=== PATIENT | male | born 1985 | race African-American/Black ===

== ENCOUNTER 2016-12-13 19:21 | Emergency (ER) | payer SELFPAY ==
[2016-12-13 22:19] LABS: BASOPHIL % 0.5 % (0-2); PLATELET COUNT 367 x10^3mcL (130-400); RED CELL DISTRIBUTION WIDTH 13.5 % (11.5-14.5)
[2016-12-13 22:35] LABS: CALCIUM 8.9 mg/dL (8.5-10.1); CARBON DIOXIDE 26.7 mmol/L (21-32); CHLORIDE SERUM 102 mmol/L (98-107); GFR1 > 60 mL/min; GLUCOSE SERUM 87 mg/dL (74-106); POTASSIUM SERUM 3.5 mmol/L (3.5-5.1); SODIUM SERUM 138 mmol/L (136-145)
[2016-12-13 22:38] LABS: ALBUMIN 3.8 g/dL (3.4-5.0); ALKALINE PHOSPHATASE 116 U/L (46-116); ALT/SGPT 99 U/L (16-63); AST/SGOT 89 U/L (15-37); BILIRUBIN TOTAL 1.1 mg/dL (0.20-1.00); LIPASE 95 IU/L (73-393)
[2016-12-13 22:41] LABS: CHOLESTEROL 120 mg/dL (<200); CHOLESTEROL/HDL RATIO 1.6; HDL CHOLESTEROL 76 mg/dL (40-60); TRIGLYCERIDES 28 mg/dL (<150)
[2016-12-13 23:14] LABS: T3 TOTAL 0.98 ng/mL
[2016-12-13 23:20] LABS: FREE T4 1.27 ng/dL (0.76-1.46); FREE THYROXINE INDEX 3.2 ug/dL (1.4-4.5)
[2016-12-14 00:35] VITALS: BP 108/66
== END 2016-12-14 00:42 | disposition left against medical advice (07) ==
LOC: ED 19:21
PROVIDERS: Specialist
DX: F41.9 Anxiety disorder, unspecified (principal); R53.1 Weakness; R53.83 Other fatigue; F32.1 Major depressive disorder, single episode, moderate; F17.200 Nicotine dependence, unspecified, uncomplicated
CPT/HCPCS: 83880; 84439; G0480; J3411; J3475; J3490; J7030; Q0092

== ENCOUNTER 2016-12-14 01:20 | Emergency (ER) | payer SELFPAY ==
[2016-12-14 01:37] VITALS: BP 142/99
== END 2016-12-14 03:29 | disposition left against medical advice (07) ==
LOC: ED 01:20
DX: Z53.21 Procedure and treatment not carried out due to patient leaving prior to being seen by health care provider (principal)

== ENCOUNTER 2017-02-08 06:41 | Emergency (ER) | payer SELFPAY ==
[2017-02-08 07:02] VITALS: BP 161/120
== END 2017-02-08 07:59 | disposition home or self-care (01) ==
LOC: ED 06:41
DX: F41.9 Anxiety disorder, unspecified (principal); N45.1 Epididymitis; R03.0 Elevated blood-pressure reading, without diagnosis of hypertension
CPT/HCPCS: 87491; 87591; J0696

== ENCOUNTER 2017-09-12 22:36 | Emergency (ER) | payer OTHER ==
[~2017-09-12] VITALS: Ht 180.3 cm; Wt 95.8 kg
[2017-09-12 23:37] LABS: BASOPHIL % 0.4 % (0-2); PLATELET COUNT 300 x10^3mcL (130-400); RED CELL DISTRIBUTION WIDTH 12.6 % (11.5-14.5)
[2017-09-12 23:48] LABS: CALCIUM 9.3 mg/dL (8.5-10.1); CARBON DIOXIDE 28.8 mmol/L (21-32); CHLORIDE SERUM 102 mmol/L (98-107); CREATININE SERUM 1.2 mg/dL (0.7-1.3); GFR1 > 60 mL/min; GLUCOSE SERUM 108 mg/dL (74-106); POTASSIUM SERUM 3.2 mmol/L (3.5-5.1); SODIUM SERUM 137 mmol/L (136-145)
[2017-09-12 23:55] LABS: FREE T4 1.23 ng/dL (0.76-1.46); T4(THYROXINE) 8.6 ug/dL (4.7-13.3)
[2017-09-13 00:13] LABS: ALBUMIN 4.2 g/dL (3.4-5.0); ALKALINE PHOSPHATASE 113 U/L (46-116); ALT/SGPT 28 U/L (16-63); AST/SGOT 31 U/L (15-37); BILIRUBIN TOTAL 0.6 mg/dL (0.20-1.00); HDL CHOLESTEROL 57 mg/dL (40-60); LIPASE 85 IU/L (73-393); TOTAL PROTEIN, SERUM 7.7 g/dL (6.4-8.2); TRIGLYCERIDES 35 mg/dL (<150)
[2017-09-13 00:14] VITALS: BP 148/89
[2017-09-13 00:18] LABS: CHOLESTEROL 122 mg/dL (<200); CHOLESTEROL/HDL RATIO 2.1
[2017-09-13 00:48] LABS: T3 TOTAL 1.1 ng/mL
== END 2017-09-13 00:35 | disposition home or self-care (01) ==
LOC: ED 22:36
PROVIDERS: Specialist
DX: F41.9 Anxiety disorder, unspecified (principal); F15.10 Other stimulant abuse, uncomplicated
CPT/HCPCS: 36415; 83880; 84439; J2060; Q0092

== ENCOUNTER 2018-12-05 15:47 | Emergency (ER) | payer OTHER ==
[~2018-12-05] VITALS: Ht 188 cm; Wt 79.4 kg
[2018-12-05 16:34] VITALS: Ht 188 cm; Wt 79.4 kg
[2018-12-05 16:45] LABS: CALCIUM 9.1 mg/dL (8.5-10.1); CARBON DIOXIDE 18.8 mmol/L (21-32); CHLORIDE SERUM 103 mmol/L (98-107); CREATININE SERUM 1.2 mg/dL (0.7-1.3); GFR1 > 60 mL/min; GLUCOSE SERUM 98 mg/dL (74-106); POTASSIUM SERUM 3.9 mmol/L (3.5-5.1); SODIUM SERUM 138 mmol/L (136-145)
[2018-12-05 16:50] LABS: ALKALINE PHOSPHATASE 124 U/L (46-116); ALT/SGPT 26 U/L (16-63); AST/SGOT 28 U/L (15-37); BILIRUBIN TOTAL 1.12 mg/dL (0.20-1.00); TOTAL PROTEIN, SERUM 7.7 g/dL (6.4-8.2)
[2018-12-05 16:50] LABS: AMPHETAMINE QUAL UR NONE DETECTED (See below)
[2018-12-05 16:51] LABS: BASOPHIL % 0.8 % (0-2); PLATELET COUNT 352 x10^3mcL (130-400); RED CELL DISTRIBUTION WIDTH 13.7 % (11.5-14.5)
--- NOTE | 2018-12-06 08:45 | NUR ---
Contacted the following facilities regarding placement. [facility]: s/w Cristina, no beds available [facility]: s/w Lisseth, no beds available [facility]: s/w Nini, no beds available, packet faxed for waitlist [facility]: States they cannot accept pt. [facility]: s/w Marline, states no bed available [facility]: s/w Karir, no bed available [facility]: s/w Alba, no bed available, packet faxed for waitlist [facility]: s/w Yaneth, states possible bed, will review packet [facility] s/w Madison, no bed available, packet faxed for waitlist.
[2018-12-06 13:43] VITALS: BP 132/75
== END 2018-12-06 13:43 | disposition home or self-care (01) ==
LOC: ED 15:47
PROVIDERS: Emergency Medicine
DX: R45.851 Suicidal ideations (principal); F41.9 Anxiety disorder, unspecified
CPT/HCPCS: 36415; G0480; J7030

== ENCOUNTER 2019-02-16 11:29 | Emergency (ER) | payer OTHER ==
[~2019-02-16] VITALS: Ht 180.3 cm; Wt 81.6 kg
[2019-02-16 11:51] LABS: BASOPHIL % 0.3 % (0-2); PLATELET COUNT 309 x10^3mcL (130-400); RED CELL DISTRIBUTION WIDTH 13.4 % (11.5-14.5)
[2019-02-16 11:57] LABS: CALCIUM 9.1 mg/dL (8.5-10.1); CARBON DIOXIDE 23.8 mmol/L (21-32); CHLORIDE SERUM 103 mmol/L (98-107); CREATININE SERUM 1.6 mg/dL (0.7-1.3); GFR1 53 mL/min; GLUCOSE SERUM 98 mg/dL (74-106); POTASSIUM SERUM 3.5 mmol/L (3.5-5.1); SODIUM SERUM 142 mmol/L (136-145)
[2019-02-16 12:02] LABS: ALBUMIN 4.4 g/dL (3.4-5.0); ALKALINE PHOSPHATASE 103 U/L (46-116); ALT/SGPT 38 U/L (16-63); AST/SGOT 94 U/L (15-37); BILIRUBIN TOTAL 1.6 mg/dL (0.20-1.00); TOTAL PROTEIN, SERUM 7.7 g/dL (6.4-8.2)
[2019-02-16 14:35] LABS: microscopic required? NO
[2019-02-16 14:59] LABS: UA SPECIFIC GRAVITY 1.015 (1.005-1.035); urine erythrocyte NEGATIVE (NEGATIVE)
[2019-02-16 21:42] VITALS: BP 142/80
== END 2019-02-16 21:42 | disposition home or self-care (01) ==
LOC: ED 11:29
PROVIDERS: Specialist
DX: S51.011A Laceration without foreign body of right elbow, initial encounter (principal); S51.811A Laceration without foreign body of right forearm, initial encounter; F41.9 Anxiety disorder, unspecified; F15.10 Other stimulant abuse, uncomplicated; W22.8XXA Striking against or struck by other objects, initial encounter; Y93.89 Activity, other specified; Y92.89 Other specified places as the place of occurrence of the external cause; Y99.8 Other external cause status
CPT/HCPCS: G0480; J2001; J2060; J3486; J7030

== ENCOUNTER 2019-02-18 06:47 | Emergency (ER) | payer OTHER ==
[~2019-02-18] VITALS: Ht 180.3 cm; Wt 81.6 kg
[2019-02-18 06:53] VITALS: Ht 180.3 cm; Wt 81.6 kg
== END 2019-02-18 08:05 | disposition home or self-care (01) ==
LOC: ED 06:47
DX: F41.9 Anxiety disorder, unspecified (principal); G47.00 Insomnia, unspecified; F15.10 Other stimulant abuse, uncomplicated

== ENCOUNTER 2019-02-18 14:39 | Emergency (ER) | payer OTHER ==
[~2019-02-18] VITALS: Ht 180.3 cm; Wt 81.6 kg
[2019-02-18 14:47] VITALS: Ht 180.3 cm; Wt 81.6 kg
[2019-02-18 15:42] LABS: CALCIUM 9.3 mg/dL (8.5-10.1); CARBON DIOXIDE 26.2 mmol/L (21-32); CHLORIDE SERUM 104 mmol/L (98-107); CREATININE SERUM 1.5 mg/dL (0.7-1.3); GFR1 57 mL/min; GLUCOSE SERUM 101 mg/dL (74-106); POTASSIUM SERUM 3.8 mmol/L (3.5-5.1); SODIUM SERUM 140 mmol/L (136-145)
[2019-02-18 15:46] LABS: ALBUMIN 4.3 g/dL (3.4-5.0); ALKALINE PHOSPHATASE 96 U/L (46-116); ALT/SGPT 54 U/L (16-63); AST/SGOT 148 U/L (15-37); BILIRUBIN TOTAL 1.8 mg/dL (0.20-1.00); LIPASE 147 IU/L (73-393); TOTAL PROTEIN, SERUM 7.7 g/dL (6.4-8.2)
[2019-02-18 15:56] LABS: BASOPHIL % 0.6 % (0-2); PLATELET COUNT 284 x10^3mcL (130-400); RED CELL DISTRIBUTION WIDTH 13.2 % (11.5-14.5)
[2019-02-18 16:45] LABS: UA SPECIFIC GRAVITY 1.015 (1.005-1.035); microscopic required? YES; urine erythrocyte TRACE (NEGATIVE)
[2019-02-18 17:13] LABS: AMPHETAMINE QUAL UR NONE DETECTED (See below)
--- NOTE | 2019-02-19 03:54 | NUR ---
At this time there are still no beds available , will continue to find placement, ER charge nurse Myla JACOB made aware.
[2019-02-19 12:32] VITALS: BP 105/67
== END 2019-02-19 12:32 | disposition home or self-care (01) ==
LOC: ED 14:39
PROVIDERS: Emergency Medicine
DX: S00.01XA Abrasion of scalp, initial encounter (principal); R41.0 Disorientation, unspecified; F41.9 Anxiety disorder, unspecified; F31.9 Bipolar disorder, unspecified; X58.XXXA Exposure to other specified factors, initial encounter; Y93.89 Activity, other specified; Y92.89 Other specified places as the place of occurrence of the external cause; Y99.8 Other external cause status
CPT/HCPCS: 90715; G0480; J1630; J2060; J7030

== ENCOUNTER 2019-03-22 20:38 | Inpatient (IN) | payer OTHER ==
[~2019-03-22] VITALS: Ht 180.3 cm; Wt 89.0 kg
[2019-03-22 20:44] VITALS: Ht 180.3 cm; Wt 89.0 kg
[2019-03-22 21:06] LABS: BASOPHIL % 0.5 % (0-2); PLATELET COUNT 351 x10^3mcL (130-400)
[2019-03-22 21:54] LABS: ALBUMIN 4.2 g/dL (3.4-5.0); ALKALINE PHOSPHATASE 155 U/L (46-116); ALT/SGPT 68 U/L (16-63); AST/SGOT 89 U/L (15-37); BILIRUBIN TOTAL 0.84 mg/dL (0.20-1.00); CALCIUM 8.8 mg/dL (8.5-10.1); CARBON DIOXIDE 25.4 mmol/L (21-32); CHLORIDE SERUM 96 mmol/L (98-107); CHOLESTEROL 142 mg/dL (<200); CREATININE SERUM 1.1 mg/dL (0.7-1.3); GFR1 > 60 mL/min; GLUCOSE SERUM 99 mg/dL (74-106); POTASSIUM SERUM 3.8 mmol/L (3.5-5.1); SODIUM SERUM 133 mmol/L (136-145); TOTAL PROTEIN, SERUM 7.6 g/dL (6.4-8.2)
[2019-03-22 22:57] LABS: AMPHETAMINE QUAL UR NONE DETECTED (See below)
[2019-03-24 05:52] LABS: BASOPHIL % 0.7 % (0-2); PLATELET COUNT 347 x10^3mcL (130-400); RED CELL DISTRIBUTION WIDTH 14.2 % (11.5-14.5)
[2019-03-24 06:03] LABS: CALCIUM 8.8 mg/dL (8.5-10.1); CARBON DIOXIDE 28.8 mmol/L (21-32); CHLORIDE SERUM 104 mmol/L (98-107); CREATININE SERUM 1.1 mg/dL (0.7-1.3); GFR1 > 60 mL/min; GLUCOSE SERUM 90 mg/dL (74-106); MAGNESIUM 1.9 mg/dL (1.8-2.4); PHOSPHOROUS 3.5 mg/dL (2.5-4.9); POTASSIUM SERUM 4.2 mmol/L (3.5-5.1); SODIUM SERUM 139 mmol/L (136-145)
[2019-03-24 06:20] LABS: T3 TOTAL 1.14 ng/mL
[2019-03-24 06:31] LABS: FREE T4 1.08 ng/dL (0.76-1.46)
[2019-03-24 06:32] LABS: FREE THYROXINE INDEX 1.7 ug/dL (1.4-4.5); T4(THYROXINE) 4.6 ug/dL (4.7-13.3)
[2019-03-24 07:55] VITALS: BP 121/67
[2019-03-24 17:26] VITALS: BP 111/58
[2019-03-24 21:40] VITALS: BP 115/71
[2019-03-25 05:29] VITALS: BP 113/70
[2019-03-25 07:22] VITALS: BP 128/77
[2019-03-25 16:38] VITALS: BP 148/92
[2019-03-25 19:33] VITALS: BP 112/68
[2019-03-26 04:53] VITALS: BP 111/67
[2019-03-26 07:09] VITALS: BP 141/90
[2019-03-26 11:20] VITALS: BP 150/89
[2019-03-26 12:16] VITALS: BP 150/89
== END 2019-03-26 12:30 | disposition home or self-care (01) | DRG 775 ==
LOC: ED 20:38 → MU 03-24 05:12
PROVIDERS: Emergency Medicine; ADMIT Internal Medicine
DX: F10.10 Alcohol abuse, uncomplicated (principal); E87.8 Other disorders of electrolyte and fluid balance, not elsewhere classified; R45.851 Suicidal ideations; E87.1 Hypo-osmolality and hyponatremia; F15.10 Other stimulant abuse, uncomplicated; K21.9 Gastro-esophageal reflux disease without esophagitis; F41.9 Anxiety disorder, unspecified; F32.9 Major depressive disorder, single episode, unspecified; R74.0 Nonspecific elevation of levels of transaminase and lactic acid dehydrogenase [LDH]; Y90.9 Presence of alcohol in blood, level not specified; Z68.27 Body mass index [BMI] 27.0-27.9, adult; Z79.899 Other long term (current) drug therapy
CPT/HCPCS: 84439; G0378; G0480; J7030; Q0092

== ENCOUNTER 2019-03-26 22:43 | Emergency (ER) | payer OTHER ==
[~2019-03-26] VITALS: Ht 180.3 cm; Wt 88.5 kg
[2019-03-26 22:50] VITALS: Ht 180.3 cm; Wt 88.5 kg
[2019-03-26 22:59] LABS: microscopic required? NO
[2019-03-26 23:21] LABS: BASOPHIL % 1.7 % (0-2); PLATELET COUNT 332 x10^3mcL (130-400); RED CELL DISTRIBUTION WIDTH 13.5 % (11.5-14.5)
[2019-03-26 23:22] LABS: UA SPECIFIC GRAVITY <=1.005 (1.005-1.035); urine erythrocyte NEGATIVE (NEGATIVE)
[2019-03-26 23:28] LABS: AMPHETAMINE QUAL UR NONE DETECTED (See below)
[2019-03-26 23:31] LABS: CALCIUM 8.2 mg/dL (8.5-10.1); CARBON DIOXIDE 25.4 mmol/L (21-32); CHLORIDE SERUM 100 mmol/L (98-107); GFR1 > 60 mL/min; GLUCOSE SERUM 86 mg/dL (74-106); POTASSIUM SERUM 3.6 mmol/L (3.5-5.1); SODIUM SERUM 135 mmol/L (136-145)
[2019-03-26 23:37] LABS: ALBUMIN 3.7 g/dL (3.4-5.0); ALKALINE PHOSPHATASE 144 U/L (46-116); ALT/SGPT 45 U/L (16-63); AST/SGOT 53 U/L (15-37); BILIRUBIN TOTAL 0.4 mg/dL (0.20-1.00); TOTAL PROTEIN, SERUM 7.2 g/dL (6.4-8.2)
[2019-03-27 01:18] VITALS: BP 106/51
== END 2019-03-27 05:25 | disposition home or self-care (01) ==
LOC: ED 22:43
PROVIDERS: Specialist
DX: F41.9 Anxiety disorder, unspecified (principal); F32.9 Major depressive disorder, single episode, unspecified; K21.9 Gastro-esophageal reflux disease without esophagitis
CPT/HCPCS: 36415; G0480; Q0162

== ENCOUNTER 2019-03-30 18:51 | Inpatient (IN) | payer OTHER ==
[~2019-03-30] VITALS: Ht 180.3 cm; Wt 88.9 kg
[2019-03-30 18:55] VITALS: Ht 180.3 cm; Wt 88.9 kg
[2019-03-30 19:48] LABS: CALCIUM 8.6 mg/dL (8.5-10.1); CARBON DIOXIDE 27.2 mmol/L (21-32); CHLORIDE SERUM 102 mmol/L (98-107); CREATININE SERUM 0.9 mg/dL (0.7-1.3); GFR1 > 60 mL/min; GLUCOSE SERUM 91 mg/dL (74-106); POTASSIUM SERUM 3.6 mmol/L (3.5-5.1); SODIUM SERUM 139 mmol/L (136-145)
[2019-03-30 19:51] LABS: BASOPHIL % 0.5 % (0-2); PLATELET COUNT 339 x10^3mcL (130-400); RED CELL DISTRIBUTION WIDTH 13.8 % (11.5-14.5)
[2019-03-30 20:01] LABS: ALBUMIN 3.8 g/dL (3.4-5.0); ALKALINE PHOSPHATASE 144 U/L (46-116); ALT/SGPT 52 U/L (16-63); AST/SGOT 99 U/L (15-37); BILIRUBIN TOTAL 0.53 mg/dL (0.20-1.00); T4(THYROXINE) 7.1 ug/dL (4.7-13.3); TOTAL PROTEIN, SERUM 7.2 g/dL (6.4-8.2)
[2019-03-30 20:04] LABS: AMPHETAMINE QUAL UR NONE DETECTED (See below)
[2019-03-31 20:33] VITALS: BP 140/88
[2019-04-01 05:16] VITALS: BP 136/81
[2019-04-01] MEDS ORDERED: XANAX0.25 MG PO (09:50)
[2019-04-01 10:00] VITALS: BP 123/77
[2019-04-01 16:00] VITALS: BP 140/78
[2019-04-02 08:28] VITALS: BP 117/94
[2019-04-02 16:32] VITALS: BP 97/45
[2019-04-02 22:46] VITALS: BP 121/83
[2019-04-03 07:23] VITALS: BP 121/69
[2019-04-03 11:02] VITALS: BP 115/62
[2019-04-03 16:00] VITALS: BP 114/59
[2019-04-04 06:47] VITALS: BP 124/82
[2019-04-04 13:41] VITALS: BP 121/72
[2019-04-04 16:27] VITALS: BP 118/71
[2019-04-04 19:11] VITALS: BP 124/67
[2019-04-05 06:26] VITALS: BP 124/77
[2019-04-05 16:16] VITALS: BP 124/77
[2019-04-05 16:21] VITALS: BP 111/69
[2019-04-05] MEDS ORDERED: ZYPREXA ZYDIS5 MG PO (17:16)
== END 2019-04-05 20:37 | DRG 751 ==
LOC: ED 18:51 → MU 03-31 17:56
PROVIDERS: Emergency Medicine; ADMIT Internal Medicine
DX: F28 Other psychotic disorder not due to a substance or known physiological condition (principal); R45.851 Suicidal ideations; F12.10 Cannabis abuse, uncomplicated; F10.10 Alcohol abuse, uncomplicated; F15.10 Other stimulant abuse, uncomplicated; F43.10 Post-traumatic stress disorder, unspecified; K21.9 Gastro-esophageal reflux disease without esophagitis; F41.9 Anxiety disorder, unspecified; F32.9 Major depressive disorder, single episode, unspecified; Z60.2 Problems related to living alone; Y90.0 Blood alcohol level of less than 20 mg/100 ml; R74.0 Nonspecific elevation of levels of transaminase and lactic acid dehydrogenase [LDH]; Z59.0 Homelessness; Z68.25 Body mass index [BMI] 25.0-25.9, adult; Z80.9 Family history of malignant neoplasm, unspecified; Z79.899 Other long term (current) drug therapy
CPT/HCPCS: G0378; G0480; J1200; J1630; J2060

== ENCOUNTER 2019-06-11 20:24 | Emergency (ER) | payer OTHER ==
[~2019-06-11] VITALS: Ht 177.8 cm; Wt 86.6 kg
[~2019-06-11 20:24] MED LIST: XANAX0.25 MG PO; ZYPREXA ZYDIS5 MG PO
[2019-06-11 20:37] VITALS: Ht 177.8 cm; Wt 86.6 kg
[2019-06-11 22:04] LABS: BASOPHIL % 0.6 % (0-2); PLATELET COUNT 355 x10^3mcL (130-400); RED CELL DISTRIBUTION WIDTH 12.9 % (11.5-14.5)
[2019-06-11 22:05] LABS: CALCIUM 8.6 mg/dL (8.5-10.1); CARBON DIOXIDE 23.8 mmol/L (21-32); CHLORIDE SERUM 106 mmol/L (98-107); CREATININE SERUM 1.1 mg/dL (0.7-1.3); GFR1 > 60 mL/min; GLUCOSE SERUM 101 mg/dL (74-106); POTASSIUM SERUM 3.3 mmol/L (3.5-5.1); SODIUM SERUM 141 mmol/L (136-145)
[2019-06-11 22:15] LABS: ALBUMIN 3.5 g/dL (3.4-5.0); ALKALINE PHOSPHATASE 111 U/L (46-116); ALT/SGPT 26 U/L (16-63); AST/SGOT 38 U/L (15-37); BILIRUBIN TOTAL 0.4 mg/dL (0.20-1.00)
[2019-06-12 04:42] VITALS: BP 118/67
[2019-06-12 06:38] LABS: microscopic required? NO
[2019-06-12 06:58] LABS: UA SPECIFIC GRAVITY 1.025 (1.005-1.035); urine erythrocyte NEGATIVE (NEGATIVE)
[2019-06-12 07:16] LABS: AMPHETAMINE QUAL UR POSITIVE (See below)
== END 2019-06-12 06:48 | disposition home or self-care (01) ==
LOC: ED 20:24
PROVIDERS: Emergency Medicine
DX: F32.9 Major depressive disorder, single episode, unspecified (principal); R45.851 Suicidal ideations; F41.9 Anxiety disorder, unspecified; K21.9 Gastro-esophageal reflux disease without esophagitis
CPT/HCPCS: 36415; G0480; J7030

== ENCOUNTER 2019-08-28 20:17 | Emergency (ER) | payer OTHER ==
[~2019-08-28] VITALS: Ht 182.9 cm; Wt 81.6 kg
[2019-08-28 20:24] VITALS: BP 129/58; Ht 182.9 cm; Wt 81.6 kg
== END 2019-08-28 22:15 | disposition home or self-care (01) ==
LOC: ED 20:17
DX: H57.89 Other specified disorders of eye and adnexa (principal); F17.210 Nicotine dependence, cigarettes, uncomplicated; F41.9 Anxiety disorder, unspecified; F32.9 Major depressive disorder, single episode, unspecified; Z98.890 Other specified postprocedural states
CPT/HCPCS: 99406